=== PATIENT | male | born 1940 | race Caucasian/White ===

== ENCOUNTER 2020-08-20 01:35 | Emergency (ER) | payer MEDICARE, OTHER, SELFPAY ==
[2020-08-20] VITALS (52 sets, daily range): BP systolic 76–108; BP diastolic 47–78; PULSE 70–176; RESP 13–24; TEMP 36.7–37.7; O2SAT 96–100
--- NOTE | ~2020-08-20 | XR_ITS ---
EXAMINATION: XR chest 1V portable DATE: 08/20/2020 02:13 INDICATION: Chest pain. TECHNIQUE: A single frontal view of the chest was obtained. COMPARISON: Chest 2 views 04/26/2004 FINDINGS: There are mild airspace opacities in the mid and lower lung zones. No pleural effusion or p neumothorax. The heart size is normal. Median sternotomy wires are noted. There is a left chest pacer /defibrillator with leads in right atrium and right ventricle. IMPRESSION: 1. Mild airspace opacities in the mid and lower lung zones, likely atelectasis. Reviewed, dictated and finalized at location A.
--- NOTE | 2020-08-20 01:47 | ECG_ITS ---
Measurements Intervals [place] Rate: 175 P: HI: 0 QRS: -82 QRSD: 300 T: 0 QT: 316 QTc: 541 Interpretive Statements VENTRICULAR TACHYCARDIA BASELINE ARTIFACT- I, V1-V2 ABNORMAL ECG Electronically Signed On 08-20-2020 7:20:51 CDT by Ed Maldonado D.O.
[2020-08-20] MEDS: AMIODARONE 150 MG/D5W 100 ML 150 MG/100 ML BAG (01:49)
[2020-08-20 01:58] LABS: Basophils Percent Auto 0.4 % (0.2-1.2); Eosinophils Absolute Auto 0.1 K/mm3 (0-0.3); Eosinophils Percent Auto 0.6 % (0-4.4); Hematocrit 43.2 % (42.0-52.0); Hemoglobin 14.4 g/dL (14.0-18.0); Immature Granulocyte Absolute 0.03 K/mm3 (0.00-0.031); Immature Granulocyte Percent A 0.3 % (0-0.5); Lymphocytes Absolute Auto 0.77 K/mm3 (0.9-3.2); Lymphocytes Percent Auto 8.5 % (18.3-44.2); Mean Corpuscular HGB Conc 33.3 g/dl (32-36); Mean Corpuscular Hemoglobin 30.1 pg (26-34); Mean Corpuscular Volume 90.4 fl (80-100); Mean Platelet Volume 9.6 fl (7.4-10.4); Monocytes Absolute Auto 0.7 K/mm3 (0.1-0.6); Neutrophils Absolute Auto 7.4 K/mm3 (1.3-6.7); Neutrophils Percent Auto 82.2 % (45.5-73.1); Platelet Count Result 191 k/mm3 (150-375); Red Blood Count 4.78 M/mm3 (4.6-6.20); Red Cell Distribution Width 13.5 % (11.5-14.5)
[2020-08-20 02:06] LABS: INR 1.1; Prothrombin Time 14.6 Seconds (11.1-14.7)
[2020-08-20 02:07] LABS: Partial Thromboplastin Time 26.1 SECONDS (22.3-36.8); Potassium 4.4 mmol/L (3.4-5.0)
[2020-08-20 02:11] LABS: Anion Gap 4 mmol/L (8-16); Blood Urea Nitrogen 26 mg/dL (9-20); Calcium 8.9 mg/dL (8.4-10.2); Carbon Dioxide 29 mmol/L (22-30); Chloride 105 mmol/L (98-107); Estimated CRCL calculation 47 ml/min; Estimated Glomerular Filt Rate 59; Glucose 143 mg/dL (75-110); Sodium 138 mmol/L (137-145)
[2020-08-20 02:20] LABS: Troponin I 0.026 ng/mL (0.000-0.034)
[2020-08-20] MEDS: SODIUM CHLORIDE 0.9% IV 1,000 ML 999 ML (02:49)
--- NOTE | 2020-08-20 02:50 | PC.NURSE ---
0243 This nurse interrogated patient's pacemaker and contacted Shelly at [facility] to inform of data transfer. Shelly stated she will fax the report and have a tech contact the physician for the results.
[2020-08-20] MEDS: AMIODARONE 360 MG/D5W 200 ML 360 MG/200 ML BAG 33.33 MG IV CONT (03:05)
[2020-08-20] MEDS: SODIUM CHLORIDE 0.9% IV 1,000 ML 999 ML IV CONT (04:12)
--- NOTE | 2020-08-20 04:41 | PC.NURSE ---
0437 Spoke with Miguel Angel from [facility] transfer line to give triage information. Miguel Angel stated she will call back later with update, but will most likely be day shift for bed placement.
--- NOTE | 2020-08-20 05:24 | ED.GENADULT ---
HPI - General Adult General Chief complaint: Chest Pain Stated complaint: cp/tightness after 2nd covid shot today Time Seen by Provider: 08/20/20 01:53 Related Data Home Medications Medication Instructions Recorded Confirmed aspirin [Adult Aspirin] PO 08/20/20 atorvastatin 10 mg PO HS 08/20/20 carvedilol 6.25 mg PO BID 08/20/20 clopidogrel 75 mg PO DAILY 08/20/20 furosemide 20 mg PO DAILY 08/20/20 losartan 50 mg PO BID 08/20/20 nitroglycerin 1 spray TRANSLINGUAL Q3-5M PRN 08/20/20 omeprazole 20 mg PO DAILY 08/20/20 Allergies Allergy/AdvReac Type Severity Reaction Status Date / Time No Known Allergies Allergy Verified 08/20/20 01:51 Course Course Emergency Course: Patient presented in ventricular tachycardia patient was given an amiodarone bolus since he is currently dynamically stable. 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 central office is at [facility] and the case was discussed with the hospitalist at that facility the patient has been accepted and we currently are waiting on a bed to be assigned Vital Signs Vital signs: Vital Signs Temperature 37.7 C H 08/20/20 01:32 Pulse Rate 176 H 08/20/20 01:32 Respiratory Rate 20 08/20/20 01:32 Pulse Oximetry 98 08/20/20 01:32 Temperature 37.7 C H 08/20/20 01:32 Pulse Rate 72 08/20/20 04:05 Respiratory Rate 18 08/20/20 04:05 Blood Pressure 89/57 L 08/20/20 04:41 Pulse Oximetry 97 08/20/20 04:05 Transfer Transfered to: [facility] Transportation: ALS Transfer rationale: Patient will be transferred to the facility where his primary cardiology group is Accepting physician: Hospitalist service Medical Decision Making Vital Signs Vital Signs: Vital Signs Temperature 37.7 C H 08/20/20 01:32 Pulse Rate 176 H 08/20/20 01:32 Respiratory Rate 20 08/20/20 01:32 Pulse Oximetry 98 08/20/20 01:32 Temperature 37.7 C H 08/20/20 01:32 Pulse Rate 72 08/20/20 04:05 Respiratory Rate 18 08/20/20 04:05 Blood Pressure 89/57 L 08/20/20 04:41 Pulse Oximetry 97 08/20/20 04:05 Lab Data Result diagrams: 08/20/20 01:50 08/20/20 01:50 Labs: Lab Results 08/20/20 08/20/20 08/20/20 Range/Units 01:50 01:50 01:50 WBC 9.0 (4.5-10.0) K/mm3 RBC 4.78 (4.6-6.20) M/mm3 Hgb 14.4 (14.0-18.0) g/dL Hct 43.2 (42.0-52.0) % MCV 90.4 (80-100) fl MCH 30.1 (26-34) pg MCHC 33.3 (32-36) g/dl RDW 13.5 (11.5-14.5) % Plt Count 191 (150-375) k/mm3 MPV 9.6 (7.4-10.4) fl Immature Gran % (Auto) 0.3 (0-0.5) % Neut % (Auto) 82.2 H (45.5-73.1) % Lymph % (Auto) 8.5 L (18.3-44.2) % [place] % (Auto) 8.0 (2.6-8.5) % Eos % (Auto) 0.6 (0-4.4) % Baso % (Auto) 0.4 (0.2-1.2) % Lymph # (Auto) 0.77 L (0.9-3.2) K/mm3 [place] # (Auto) 0.7 H (0.1-0.6) K/mm3 Eos # (Auto) 0.1 (0-0.3) K/mm3 Baso # (Auto) 0.0 (0.0-0.1) K/mm3 Abs Immat Gran (auto) 0.03 (0.00-0.031) K/mm3 Absolute Neuts (auto) 7.4 H (1.3-6.7) K/mm3 Absolute Nucleated RBC 0.0 (0.0-0.012) K/mm3 Nucleated RBC % 0.0 (0.0-0.2) % PT 14.6 (11.1-14.7) Seconds INR 1.1 APTT 26.1 (22.3-36.8) SECONDS Sodium 138 (137-145) mmol/L Potassium 4.4 (3.4-5.0) mmol/L Chloride 105 (98-107) mmol/L Carbon Dioxide 29 (22-30) mmol/L Anion Gap 4 L (8-16) mmol/L BUN 26 H (9-20) mg/dL Creatinine 1.20 (0.7-1.3) mg/dL Estim Creat Clear Calc 47 ml/min Estimated GFR 59 (59 - ) Glucose 143 H (75-110) mg/dL Calcium 8.9 (8.4-10.2) mg/dL Troponin I 0.026 (0.000-0.034) ng/mL Discharge Plan Discharge Clinical Impression: Ventricular tachycardia Patient Disposition: Acute Care Hospital Condition: Stable Prescriptions: No Action losartan 50 mg Tablet 50 mg PO BID RF: 0 carvedilol 6.25 mg Tablet 6.25 mg PO BID RF: 0 atorvastatin 10 mg Tablet 10 mg PO HS RF: 0 clopidogrel 75 mg Tablet
--- NOTE | 2020-08-20 05:46 | PC.NURSE ---
0534 Maria G with [facility] calls to inform this nurse that the patient has a room number, Room 1316-B and the phone number to call nurse report was [phone].
--- NOTE | 2020-08-20 05:56 | PC.NURSE ---
contacted [facility] to transfer patient to [facility] eta 07
== END 2020-08-20 08:02 | disposition short-term general hospital (02) ==
PROVIDERS: Emergency Provider Emergency Medicine; PCP Family Medicine
DX: I47.2 Ventricular tachycardia (principal); I25.10 Atherosclerotic heart disease of native coronary artery without angina pectoris; I42.9 Cardiomyopathy, unspecified; Z95.810 Presence of automatic (implantable) cardiac defibrillator
CPT/HCPCS: 36415; 71045; 80048; 84484; 85025; 85610; 85730; 93005; 96361; 96365; 96366; 99285; J0282; J7030